=== PATIENT | female | born 1995 | race Caucasian/White ===

== ENCOUNTER 2018-02-23 18:08 | Emergency (ER) | payer OTHER, SELFPAY ==
[2018-02-23] MEDS ORDERED: TETANUS & DIPHTHERIA TOX,ADULT 0.5 ML VIAL ONE (18:32)
--- NOTE | 2018-02-23 19:17 | RAD REPORT ---
EXAM DESCRIPTION: RAD - Foot Left 3 View - 02/23/2018 6:52 pm CLINICAL HISTORY: Left Foot pain status post injury FINDINGS: No fracture or dislocation is seen. A radiopaque foreign body is not seen
--- NOTE | 2018-02-23 19:35 | EDPHYS ---
Physician Documentation [facility] Name: Venecia Simon Age: 23 yrs Sex: Female : 1995 Arrival Date: 02/23/2018 Time: 18:12 Bed 17 Private MD: ED Physician Raz Lang HPI: 02/23 19:03 This 23 yrs old Female presents to ER via Ambulatory with complaints of Left pm1 Foot Injury. 19:03 The patient presents with pain, that is acute. The complaints affect the left foot. pm1 Context: The problem was sustained outdoors. Onset: The symptoms/episode began/occurred today. Modifying factors: The symptoms are alleviated by nothing. the symptoms are aggravated by weight bearing. Associated signs and symptoms: Pertinent negatives fever, numbness, swelling, tingling. Treatment prior to arrival includes: no previous treatment. The patient has not experienced similar symptoms in the past. Patient was walking outside bare footed and she reports stepping on nails. Reports two puncture wounds to left sole of foot. 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 - Social history:: Smoking status: Patient uses tobacco products, smokes one-half pack cigarettes per day. - Ebola Screening: : No symptoms or risks identified at this time. ROS: 19:03 Constitutional: Negative for fever, chills, and weight loss, Eyes: Negative for injury, pm1 pain, redness, and discharge, ENT: Negative for injury, pain, and discharge, Neck: Negative for injury, pain, and swelling, Cardiovascular: Negative for chest pain, palpitations, and edema, Respiratory: Negative for shortness of breath, cough, wheezing, and pleuritic chest pain, Abdomen/GI: Negative for abdominal pain, nausea, vomiting, diarrhea, and constipation, Back: Negative for injury and pain, MS/Extremity: Negative for injury and deformity. 19:03 Neuro: Negative for headache, weakness, numbness, tingling, and seizure. 19:03 Skin: Positive for puncture, of the ball of left foot and arch of left foot. Exam: 19:03 Constitutional: This is a well developed, well nourished patient who is awake, alert, pm1 and in no acute distress. Head/Face: Normocephalic, atraumatic. Eyes: Pupils equal round and reactive to light, extra-ocular motions intact. Lids and lashes normal. Conjunctiva and sclera are non-icteric and not injected. Cornea within normal limits. Periorbital areas with no swelling, redness, or edema. ENT: Nares patent. No nasal discharge, no septal abnormalities noted. Tympanic membranes are normal and external auditory canals are clear. Oropharynx with no redness, swelling, or masses, exudates, or evidence of obstruction, uvula midline. Mucous membranes moist. Neck: Trachea midline, no thyromegaly or masses palpated, and no cervical lymphadenopathy. Supple, full range of motion without nuchal rigidity, or vertebral point tenderness. No Meningismus. Chest/axilla: Normal chest wall appearance and motion. Nontender with no deformity. No lesions are appreciated. Cardiovascular: Regular rate and rhythm with a normal S1 and S2. No gallops, murmurs, or rubs. Normal PMI, no JVD. No pulse deficits. Respiratory: Lungs have equal breath sounds bilaterally, clear to auscultation and percussion. No rales, rhonchi or wheezes noted. No increased work of breathing, no retractions or nasal flaring. Abdomen/GI: Soft, non-tender, with normal bowel sounds. No distension or tympany. No guarding or rebound. No evidence of tenderness throughout. Back: No spinal tenderness. No costovertebral tenderness. Full range of motion. 19:03 Skin: Appearance: normal except for affected area, injury, puncture(s), of the arch of left foot and ball of left foot. 19:03 Neuro: Orientation: is normal, Motor: is normal, moves all fours, strength is normal, strength is 5/5 in all extremities, Sensation: is normal, no obvious gross deficits, Gait: is steady, at a normal pace, without difficulty. Vital Signs: 18:14 BP 127 / 69; Pulse 97; Resp 18 S; Temp 98.0(TE); Pulse Ox 98% on R/A; Weight 114.31 kg aa5 (R); Height 5 ft. 7 in. (170.18 cm) (R); Pain 8/10; 19:45 Pulse 95; Resp 16 S; Pulse Ox 99% on R/A; jd3 18:14 Body Mass Index 39.47 (114.31 kg, 170.18 cm) aa5 MDM: 18:16 Patient medically screened. pm1 19:09 Data reviewed: vital signs. Data interpreted: Pulse oximetry: on room air is 98 %. pm1 Interpretation: normal. 19:34 Counseling: I had a detailed discussion with the patient and/or guardian regarding: the pm1 historical points, exam findings, and any diagnostic results supporting the discharge/admit diagnosis, radiology results, the need for outpatient follow up, to return to the emergency department if symptoms worsen or persist or if there are any questions or concerns that arise at home. 02/23 18:22 Order name: Foot Left 3 View XRAY; Complete Time: 19:33 pm1 Administered Medications: 18:31 Drug: Tetanus-Diphtheria Toxoid Adult 0.5 ml {Animal Physiology Teacher: [place]. Exp: em 04/03/2020. Lot #: [id number]. } Route: IM; Site: right deltoid; 18:52 Follow up: Response: No adverse reaction em Disposition: 02/24 11:45 Co-signature as Attending Physician, Raz Lang MD. Disposition: 02/23/18 19:34 Discharged to Home. Impression: Puncture wound without foreign body, left foot. - Condition is Stable. - Discharge Instructions: Puncture Wound. - Prescriptions for Cipro 500 mg Oral Tablet - take 1 tablet by ORAL route every 12 hours for 7 days; 14 tablet. Naprosyn 500 mg Oral Tablet - take 1 tablet by ORAL route 2 times per day take with food; 30 tablet. - Medication Reconciliation Form, Thank You Letter, Antibiotic Education form. - Follow up: Emergency Department; When: As needed; Reason: Worsening of condition. Follow up: Private Physician; When: 2 - 3 days; Reason: Recheck today's complaints, Continuance of care, Re-evaluation by your physician. - Problem is new. - Symptoms have improved. Signatures: Dispatcher [employer] EDMS Abhay Chiu, ALLERGY AND IMMUNOLOGY CHIEF ALLERGY AND IMMUNOLOGY CHIEF em Genet Ocampo RN RN aa5 John Solorio, MAINTENANCE DATA ANALYST MAINTENANCE DATA ANALYST pm1 Raz Lang MD MD Jimenez, Brody, RN RN jd3 Corrections: (The following items were deleted from the chart) 02/23 19:50 19:34 02/23/2018 19:34 Discharged to Home. Impression: Puncture wound without foreign jd3 body, left foot. Condition is Stable. Forms are Medication Reconciliation Form, Thank You Letter, Antibiotic Education, Prescription Opioid Use. Follow up: Emergency Department; When: As needed; Reason: Worsening of condition. Follow up: Private Physician; When: 2 - 3 days; Reason: Recheck today's complaints, Continuance of care, Re-evaluation by your physician. Problem is new. Symptoms have improved. pm1
--- NOTE | 2018-02-23 19:35 | ER ---
Nurse's Notes [facility] Name: Venecia Simon Age: 23 yrs Sex: Female : 1995 Arrival Date: 02/23/2018 Time: 18:12 Bed 17 Private MD: Diagnosis: Puncture wound without foreign body, left foot Presentation: 02/23 18:13 Presenting complaint: Patient states: "I stepped on nails this morning". pt c/o left aa5 foot pain. Transition of care: patient was not received from another setting of care. Onset of symptoms was February 2018. Risk Assessment: Do you want to hurt yourself or someone else? Patient reports no desire to harm self or others. Initial Sepsis Screen: Does the patient meet any 2 criteria? No. Patient's initial sepsis screen is negative. Does the patient have a suspected source of infection? No. Patient's initial sepsis screen is negative. Care prior to arrival: None. 18:13 Method Of Arrival: Ambulatory aa5 18:13 Acuity: ROSA 4 aa5 Triage Assessment: 19:00 Injury Description: Puncture sustained to left foot. 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 - Social history:: Smoking status: Patient uses tobacco products, smokes one-half pack cigarettes per day. - Ebola Screening: : No symptoms or risks identified at this time. Screenin:24 Abuse screen: Denies threats or abuse. Nutritional screening: No deficits noted. em Tuberculosis screening: No symptoms or risk factors identified. Fall Risk None identified. Assessment: 18:24 General: Appears in no apparent distress. comfortable, Behavior is calm, cooperative. em Pain: Complains of pain in left foot. Neuro: Level of Consciousness is awake, alert, obeys commands, Oriented to person, place, time, situation. Cardiovascular: Capillary refill < 3 seconds Patient's skin is warm and dry. Respiratory: Airway is patent Respiratory effort is even, unlabored, Respiratory pattern is regular, symmetrical. GI: No signs and/or symptoms were reported involving the gastrointestinal system. : No signs and/or symptoms were reported regarding the genitourinary system. EENT: No signs and/or symptoms were reported regarding the EENT system. Derm: Skin is intact, Wound noted left foot Wound is stepped on a nail. Musculoskeletal: Capillary refill < 3 seconds, Range of motion: intact in all extremities. 19:14 Reassessment: Patient appears in no apparent distress at this time. No changes from jd3 previously documented assessment. Patient and/or family updated on plan of care and expected duration. Pain level reassessed. Patient is alert, oriented x 3, equal unlabored respirations, skin warm/dry/pink. Derm: Wound noted left foot Wound is two small puncture wounds noted to the bottom of left foot. no bleeding, no redness or swelling. 19:44 Reassessment: Patient appears in no apparent distress at this time. No changes from jd3 previously documented assessment. Patient and/or family updated on plan of care and expected duration. Pain level reassessed. Patient is alert, oriented x 3, equal unlabored respirations, skin warm/dry/pink. pt reported understanding of discharge instructions. Vital Signs: 18:14 BP 127 / 69; Pulse 97; Resp 18 S; Temp 98.0(TE); Pulse Ox 98% on R/A; Weight 114.31 kg aa5 (R); Height 5 ft. 7 in. (170.18 cm) (R); Pain 8/10; 19:45 Pulse 95; Resp 16 S; Pulse Ox 99% on R/A; jd3 18:14 Body Mass Index 39.47 (114.31 kg, 170.18 cm) aa5 ED Course: 18:12 Patient arrived in ED. mr 18:14 Triage completed. aa5 18:14 Arm band placed on. aa5 18:16 John Solorio NP is PHCP. pm1 18:16 Raz Lang MD is Attending Physician. pm1 18:17 Abhay Chiu LVN is Primary Nurse. em 18:24 Patient has correct armband on for positive identification. Bed in low position. Call em light in reach. 18:24 No provider procedures requiring assistance completed. Patient did not have IV access em during this emergency room visit. 18:50 X-ray completed. Portable x-ray completed in exam room. Patient tolerated procedure ka well. 18:54 Foot Left 3 View XRAY In Process Unspecified. EDMS Administered Medications: 18:31 Drug: Tetanus-Diphtheria Toxoid Adult 0.5 ml {Director Property: [employer]. Exp: em 04/03/2020. Lot #: [id number]. } Route: IM; Site: right deltoid; 18:52 Follow up: Response: No adverse reaction em Outcome: 19:34 Discharge ordered by MD. pm1 19:44 Discharged to home ambulatory, with family. jd3 19:44 Condition: stable 19:44 Discharge instructions given to patient, Instructed on discharge instructions, follow up and referral plans. medication usage, Demonstrated understanding of instructions, follow-up care, medications, Prescriptions given X 2. 19:50 Patient left the ED. jd3 Signatures: Dispatcher [employer] EDKS Nora Griffin Edgar, FIREWORKS MAKER FIREWORKS MAKER Genet Roy, RN RN aa5 Elzbieta Guerrero Patrick, RICARDO OYSTER HARVESTER pm1 Brody Jimenez RN RN jd3
== END 2018-02-23 19:50 | disposition home or self-care (01) ==
LOC: ER 18:08
DX: S91.332A Puncture wound without foreign body, left foot, initial encounter (principal); W45.0XXA Nail entering through skin, initial encounter; Y93.01 Activity, walking, marching and hiking; Y92.89 Other specified places as the place of occurrence of the external cause; Z23 Encounter for immunization; F17.210 Nicotine dependence, cigarettes, uncomplicated
CPT/HCPCS: 90714; 99283

== ENCOUNTER 2021-04-02 06:47 | Emergency (ER) | payer SELFPAY, OTHER ==
--- OUTSIDE RECORDS SUMMARY | 2021-04-02 06:51 | XMS REPORT | Continuity of Care Document ---
:1995 Author Organization [facility] t Address [address] [place] [address] Care Team Providers Name Role Phone Robin Goodrich Primary Care Physician Robin Goodrich Attending Clinician Robin RODRIGUEZ Attending Clinician Unavailable Hermilo LING Attending Clinician Unavailable Payers Payer Name Policy Type Policy Number Effective Date Expiration Date S ource Problems Condition Condition Condition Status Onset Resolution Last Treating Co mments Source Name Details Category Date Date Treatment Clinician Date Vaginal Vaginal Disease Active 2020-0 Univers odor odor 4-01 ity of 00:00: [address] Nexplanon Nexplanon Disease Active 2020-0 Uni vers insertion insertion 2-19 ity of 00:: [address] Trichomona Trichomona Disease Active 2020-0 U nivers l l 2-10 ity [place] [facility] Tobacco Tobacco Disease Active 2020-0 Univers use use 2-05 ity of disorder disorder 00:00: [address] BMI BMI Disease Active 2020-0 Univers 32.0-32.9, 32.0-32.9, 2-05 it y of adult adult 00:00: [address] Allergies, Adverse Reactions, Alerts Allergy Allergy Status Severity Reaction(s) Onset Inactive Treating Comm ents Source Name Type Date Date Clinician NO KNOWN Drug Active Univers ALLERGIE Class ity of S [facility] Social History Social Habit Start Date Stop Date Quantity Comments Source Exposure to Not sure University of SARS-CoV-2 [facility] (event) Branch History SDOH University o f Alcohol Frequency [place] [facility] History [facility] University o f Alcohol Std [place] [facility] Branch History [facility] o f Alcohol Binge [place] [facility] [place] Alcohol intake 2021-01-20 2021-01-20 0 /d University of 00:00:00 00:00:00 [facility] Tobacco Comment 2019-05-21 2019-05-21 a pack a week Univer sity of 00:00:00 00:00:00 [facility] Tobacco use and 2019-05-21 2019-05-21 Never used Universit y of exposure 00:00:00 00:00:00 [facility] Alcohol Comment 2019-05-21 2019-05-21 occasional Universit y of 00:00:00 00:00:00 [facility] History of 2015-09-14 Cigarette Smoker Universi ty of tobacco use 00:00:00 [facility] Sex Assigned At [birth year] Universit y of 00:00:00 00:00:00 [facility] Smoking Status Start Date Stop Date Source Current every day smoker 2019-05-21 00:00:00 Uni versity of [facility] Medications Ordered Filled Start Stop Current Ordering Indication Dosage Frequency Signature Comments Components Source Medication Medication Date Date Medication? Clinician (SIG) Name Name metroNIDAZO 2020-04- Yes [id number] 500mg Take 1 Univers LE (FLAGYL) 02-01 tablet by it y of 500 mg 00:00: 04:59 mouth 2 [place] tablet 00 :00 (two) Medical times [place] daily for 7 days. No known 2020-04 No Univers medications 0-07 ity of 13:39: [address] No known 2020-04 No Univers medications 0-07 ity of 13:39: [address] Immunizations Ordered Filled Immunization Date Status Comments Sourc e Immunization Name Name HPV9 2019-06-18 Completed University of 00:00:00 [facility] HPV9 2019-06-18 Completed University of 00:00:00 [facility] HPV9 2019-06-18 Completed University of 00:00:00 [facility] Influenza Virus 2019-05-21 Completed Universit y of Vaccine Quad .5 mL 00:00:00 [facility] 6+ MO Branch HPV9 2019-05-21 Completed University of 00:00:00 [facility] Influenza Virus 2019-05-21 Completed Universit y of Vaccine [place] .5 mL 00:00:00 [facility] 6+ MO Branch HPV9 2019-05-21 Completed University of 00:00:00 [facility] Influenza Virus 2019-05-21 Completed Universit y of Vaccine [place] .5 mL 00:00:00 [facility] IM 6+ MO Branch HPV9 2019-05-21 Completed University of 00:00:00 [facility] TDAP (ADACEL) 2018-03-16 Completed University of VACCINE 00:00:00 [facility] TDAP (ADACEL) 2018-03-16 Completed University of VACCINE 00:00:00 [facility] TDAP (ADACEL) 2018-03-16 Completed University of VACCINE 00:00:00 [facility] Vital Signs Vital Name Observation Time Observation Value Comments Source Systolic blood 2021-01-20 18:45:00 117 mm[Hg] Univer sity of pressure [facility] Diastolic blood 2021-01-20 18:45:00 74 mm[Hg] Unive rsity of pressure [facility] Heart rate 2021-01-20 18:45:00 94 /min [facility] Body temperature 2021-01-20 18:45:00 37 Anai [facility] Respiratory rate 2021-01-20 18:45:00 18 /min [facility] Body height 2021-01-20 18:45:00 170.2 cm [facility] Body weight 2021-01-20 18:45:00 90.13 kg [facility] BMI 2021-01-20 18:45:00 31.12 kg/m2 [facility] Procedures This patient has no known procedures. Encounters Start End Encounter Admission Attending Care Care Encounter Source Date/Time Date/Time Type Type Clinicians Facility Department ID 2021-01-24 2021-01-24 Telephone SAPNA Rodriguez [id number] [facility] 00:00:00 00:00:00 Juana Kelly DEBURRING TECHNICIAN [id number] y [facility] [id number] Fer[place] as MATERNAL [id number] Med ical & CHILD [address] [place] [address] 2021-01-20 2021-01-20 Office SAPNA Rodriguez [id number] Univers 13:37:00 14:10:30 Visit Juana Kelly DEBURRING TECHNICIAN [id number] [facility] [id number] Fercho as MATERNAL [id number] [facility] & CHILD [address] [place] [address] 2021-01-20 2021-01-20 Outpatient Nikhil RODRIGUEZ [facility] [id number] Univers 13:45:00 13:45:00 JUANA [id number] [facility] 2021-01-20 2021-01-20 Outpatient Nikhil RODRIGUEZ [facility] [id number] Univers 13:45:00 13:45:00 JUANA [facility] 2021-01-17 2021-01-17 Outpatient Nikhil RODRIGUEZ [facility] [id number] Univers 11:00:00 11:00:00 JUANA [id number] [facility] 2021-01-17 2021-01-17 Outpatient Nikhil RODRIGUEZ [facility] [id number] Univers 11:00:00 11:00:00 JUANA [facility] 2021-01-17 2021-01-17 [facility] [id number] Univers 11:00:00 11:00:00 JUANA [facility] 2020-07-15 2020-07-15 Outpatient Nikhil RODRIGUEZ [facility] [id number] Univers 13:00:00 13:00:00 JAUNA [id number] [facility] 2020-07-15 2020-07-15 Outpatient Nikhil RODRIGUEZ [facility] [id number] Univers 13:00:00 13:00:00 JUANA [facility] 2020-07-06 2020-07-06 Outpatient Nikhil RODRIGUEZ [facility] [id number] Univers 08:15:00 08:15:00 JUANA [id number] [facility] 2020-07-06 2020-07-06 Outpatient Nikhil RODRIGUEZ [facility] [id number] Univers 08:15:00 08:15:00 JUANA [facility] 2020-01-08 2020-01-08 Outpatient Nikhil RODRIGUEZ [facility] [id number] Univers 14:30:00 14:30:00 JUANA [id number] ity [facility] 2020-01-08 2020-01-08 Outpatient R MICHAEL [facility] [id number] Univers 14:30:00 14:30:00 JUANA ity [facility] 2019-11-20 2019-11-20 Outpatient R [facility] [id number] Univers 14:00:00 14:00:00 ity [facility] 2019-11-20 2019-11-20 Outpatient R [facility] [id number] Univers 14:00:00 14:00:00 ity [facility] 2019-11-13 2019-11-13 [facility] [id number] Univers 13:15:00 13:15:00 JUANA ity [facility] 2019-11-13 2019-11-13 [facility] [id number] Univers 13:15:00 13:15:00 JUANA [facility] 2019-10-09 2019-10-09 [facility] [id number] Univers 14:45:00 14:45:00 JUANA [id number] ity [facility] 2019-10-09 2019-10-09 [facility] [id number] Univers 14:45:00 14:45:[facility] 2019-09-16 Outpatient R [facility] [id number] Univers 09:30:00 09:30:00 ity [facility] 2019-09-16 2019-09-16 Outpatient R AKINNGOC, [facility] [id number] Univers 09:30:00 09:30:00 SHANKAR vargas o f [facility] 2019-09-10 2019-09-10 Outpatient R [facility] [id number] Univers 15:30:00 15:30:00 [id number] ity [facility] 2019-09-10 2019-09-10 Outpatient R [facility] [id number] Univers 15:30:00 15:30:00 ity [facility] 2019-06-18 2019-06-18 Outpatient R AKINSIBARRIE, [facility] [id number] Univers 16:00:00 16:00:00 SHANKAR fine [facility] Results This patient has no known results.
[2021-04-02] MEDS ORDERED: HYDROCODONE/APAP 10/325 TAB ONE (07:42)
[2021-04-02] MEDS ORDERED: KETOROLAC 30 MG/ML INJ ONE (07:42)
[2021-04-02] MEDS ORDERED: ONDANSETRON 4 MG (ODT) TAB ONE (07:43)
--- NOTE | 2021-04-02 07:44 | EDPHYS ---
Physician Documentation [facility] Name: Venecia Simon Age: 26 yrs Sex: Female : 1995 Arrival Date: 04/02/2021 Time: 07:21 Bed Waiting Private MD: ED Physician Luc Vail HPI: 04/02 08:10 This 26 yrs old Female presents to ER via Wheelchair with complaints of Foot Pain. kb 08:10 The patient presents with pain, that is acute, tenderness. The complaints affect the kb left gluteus enmanuel and left leg. Context: The problem was sustained at home, resulted from a chronic condition, the patient can fully bear weight, the patient is able to ambulate, Problem is a result from a previous injury: Yes. Treatment prior to arrival includes: no previous treatment. Severity of symptoms: At their worst the symptoms were moderate, in the emergency department the symptoms are unchanged. The patient has not experienced similar symptoms in the past. The patient has not recently seen a physician. 08:11 Onset: The symptoms/episode began/occurred yesterday. Modifying factors: The symptoms kb are alleviated by nothing. the symptoms are aggravated by movement. Associated signs and symptoms: Pertinent positives: numbness, tingling, Pertinent negatives calf tenderness, fever, nausea, rash, swelling, vomiting, warmth, weakness. Pt reports sciatica that started yesterday. Went to [place] ER last night and has been taking steroids, but still having pain. States she fell years ago and has had this intermittently since then. No vertebral tenderness, no low back tenderness. Tenderness noted to mid left buttock. Pain radiates down left leg with intermittent tingling/numbness. HUNTER GUIDE: 07:41 LMP N/A - Nexplanon ss Historical: - Allergies: 07:41 No Known Allergies; ss - Immunization history:: Client reports having NOT received the Covid vaccine. - Social history:: Smoking status: Patient reports the use of cigarette tobacco products, 1 ppw. ROS: 08:12 Constitutional: Negative for fever, chills, and weight loss. kb 08:12 MS/extremity: Positive for pain, tingling, of the left leg. 08:12 All other systems are negative. Exam: 08:12 Constitutional: This is a well developed, well nourished patient who is awake, alert, kb and in no acute distress. Head/Face: Normocephalic, atraumatic. ENT: Moist Mucous membranes Respiratory: Respirations even and unlabored. No increased work of breathing. Talking in full sentences Back: No spinal tenderness. No costovertebral tenderness. Full range of motion. Skin: Warm, dry with normal turgor. Normal color. MS/ Extremity: Pulses equal, no cyanosis. Neurovascular intact. Full, normal range of motion. Neuro: Awake and alert, GCS 15, oriented to person, place, time, and situation. Moves all extremities. Normal gait. Psych: Awake, alert, with orientation to person, place and time. Behavior, mood, and affect are within normal limits. 08:12 Musculoskeletal/extremity: Extremities: grossly normal except: noted in the left gluteus enmanuel: pain, tenderness, ROM: limited active range of motion due to pain, Circulation is intact in all extremities. Sensation intact. Weight bearing: able to fully bear weight. Vital Signs: 07:39 BP 138 / 93; Pulse 75; Resp 20; Temp 97.9(TE); Pulse Ox 100% on R/A; Height 5 ft. 7 in. ss (170.18 cm); Pain 10/10; MDM: 07:39 Patient medically screened. kb 07:43 Data reviewed: vital signs, nurses notes. Data interpreted: Pulse oximetry: on room air kb is 100 %. Interpretation: normal. Counseling: I had a detailed discussion with the patient and/or guardian regarding: the historical points, exam findings, and any diagnostic results supporting the discharge/admit diagnosis, the need for outpatient follow up, a family practitioner, to return to the emergency department if symptoms worsen or persist or if there are any questions or concerns that arise at home. Administered Medications: 07:45 Drug: Zofran (Ondansetron) 4 mg Route: PO; ss 07:50 Drug: [place] (HYDROcodone-acetaminophen) 10 mg-325 mg 1 tabs Route: PO; ss 07:50 Drug: Ketorolac 30 mg Route: IM; Site: left deltoid; ss Disposition: 09:35 Co-signature as Attending Physician, Luc Vail MD. rn Disposition Summary: 04/02/21 07:44 Discharge Ordered Location: Home kb Condition: Stable kb Diagnosis - Sciatica, left side kb Followup: kb - With: Emergency Department - When: As needed - Reason: Worsening of condition Discharge Instructions: - Discharge Summary Sheet kb - Sciatica, [id number] kb - Back Exercises, [id number] kb Forms: - Medication Reconciliation Form kb - Thank You Letter kb - Antibiotic Education kb - Prescription Opioid Use kb Prescriptions: - Cyclobenzaprine 10 mg Oral Tablet - take 1 tablet by ORAL route every 8 hours As needed; 21 tablet; Refills: 0, kb Product Selection Permitted - Diclofenac Sodium 75 mg Oral tablet,delayed release (DR/EC) - take 1 tablet by ORAL route 2 times per day As needed; 30 tablet; Refills: 0, kb Product Selection Permitted Signatures: Annika Hernández FNP-C FNP-Luc Mckeon MD MD rn Katerine Luna RN RN ss
--- NOTE | 2021-04-02 07:44 | ER ---
Nurse's Notes [facility] Name: Venecia Simon Age: 26 yrs Sex: Female : 1995 Arrival Date: 04/02/2021 Time: 07:21 Bed Waiting Private MD: Diagnosis: Sciatica, left side Presentation: 04/02 07:39 Chief complaint: Patient states: L low back pain that radiates down L leg with some ss numbness. Pt was seen at [facility] yesterday and given "pain shot" and steroids. Pt reports that the pain is not getting any better. Coronavirus screen: Client denies travel out of the [place] in the last 14 days. Ebola Screen: Patient denies exposure to infectious person. Patient denies travel to an Ebola-affected area in the 21 days before illness onset. Initial Sepsis Screen: Does the patient meet any 2 criteria? No. Patient's initial sepsis screen is negative. Does the patient have a suspected source of infection? No. Patient's initial sepsis screen is negative. Risk Assessment: Do you want to hurt yourself or someone else? Patient reports no desire to harm self or others. Onset of symptoms was March 29, 2021. 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 - Social history:: Smoking status: Patient reports the use of cigarette tobacco products, 1 ppw. Screenin:42 Abuse screen: Denies threats or abuse. Denies injuries from another. Nutritional ss screening: No deficits noted. Tuberculosis screening: Never had TB. Fall Risk No fall in past 12 months (0 pts). Secondary diagnosis (15 points) Sciatica L side. Vital Signs: 07:39 BP 138 / 93; Pulse 75; Resp 20; Temp 97.9(TE); Pulse Ox 100% on R/A; Height 5 ft. 7 in. ss (170.18 cm); Pain 10/10; ED Course: 07:21 Patient arrived in ED. mr 07:39 Annika Hern[facility]-C [facility] kb 07:39 Luc Vail MD is Attending Physician. kb 07:41 Triage completed. ss 07:41 Arm band placed on right wrist. ss 07:42 Patient has correct armband on for positive identification. ss 07:58 No provider procedures requiring assistance completed. Patient did not have IV access ss during this emergency room visit. Administered Medications: 07:45 Drug: Zofran (Ondansetron) 4 mg Route: PO; ss 07:50 Drug: [place] (HYDROcodone-acetaminophen) 10 mg-325 mg 1 tabs Route: PO; ss 07:50 Drug: Ketorolac 30 mg Route: IM; Site: left deltoid; ss Outcome: 07:44 Discharge ordered by MD. kb 07:58 Discharged to home ambulatory, with family. ss 07:58 Condition: good 07:58 Discharge instructions given to patient, family, Instructed on discharge instructions, follow up and referral plans. medication usage, Demonstrated understanding of instructions, follow-up care, medications, Prescriptions given X 2. 07:58 Patient left the ED. ss Signatures: Annika Hernández, NED BULLARD-Nora Anthony Shelby, RN RN ss
[2021-04-02 08:11] VITALS: BP 138/93; TEMP 97.9; O2SAT 100
== END 2021-04-02 07:58 | disposition home or self-care (01) ==
LOC: ER 06:47
DX: M54.32 Sciatica, left side (principal); Z72.0 Tobacco use
CPT/HCPCS: 96372; 99283